=== PATIENT | female | born 1935 | race Caucasian/White ===

== ENCOUNTER 2024-12-20 10:39 | Emergency (ER) | payer OTHER, MEDICARE, SELFPAY ==
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
[2024-12-20 10:47] VITALS: BP 170/70; PULSE 80; RESP 16; TEMP 36.7; O2SAT 100
--- NOTE | 2024-12-20 10:54 | ECG_ITS ---
Test Date: 2024-12-20 11:00:02 Measurements Intervals Sidney Rate: 76 P: 66 AR: 151 QRS: 17 QRSD: 80 T: 49 QT: 384 QTc: 433 Interpretive Statements SINUS RHYTHM NORMAL ECG No previous ECG available for comparison Electronically Signed On 12-20-2024 14:04:02 CDT by Torsten Roberts M.D.
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
[2024-12-20 14:10] VITALS: BP 152/76; PULSE 76; RESP 16; O2SAT 100
--- OUTSIDE RECORDS SUMMARY | 2024-12-20 15:33 | XMS_ITS ---
Author Organization [facility] Address [address] [place], [place] [id number] Care Team Providers Care Checkout Supervisor Name Role Phone Rigoberto Parsons Primary Care Provider REASON FOR VISIT 3 mouths follow up Encounters Encounter Location Date Provider Diagnosis Internal Medicine [facility] [address] [place], [place] [id number] 11/25/2024 Rigoberto Parsons Plan Of Treatment Next Appt Details Provider Name:Rigoberto Denis s, 12/31/2024 10:15:00 AM, [address], [place], [place], [place], [id number], Progress Notes * Namrata MAURO GDOB:1935 (89 yo F)Acc No.[id number]:11/25/2024 Patient: Landon Namrata DICKERSON Provider: Eli Parsons DO :1935 A ge:88 Y S ex:Female Date:11/25/2024 [address] [id number] Subjective: * Chief Complaints: * 1 . 3 mouths follow up. * Medical History: Objective: * Vitals: Assessment: Plan: * Treatment: * Care Plan Details* * Electronic signature of Keyur Parsons DO, [id number] on 12/20/2024 at 04:32 PM EDT Sign off status: Pending * Provider: Eli Parsons, DO Date: 0 11/25/2024 Generated for Nohemi lyle/Gardenia/Asiya on: 0 12/20/2024 04:32 PM EDT
--- OUTSIDE RECORDS SUMMARY | 2024-12-20 15:33 | XMS_ITS | Encounter Summary ---
Author Organization [facility] Address [facility] [address] [facility] [place] [address] Care Team Providers Care Booker Name Role Phone Rigoberto Parsons Primary Care Provider [phone] Source Comments In the event this information is protected by the Federal Confidentiality of Alcohol and Drug AbusePatient Records regulations: The Federal rules restrict any use of the information to criminally investigate or prosecute any alcohol or drug abuse patient.[facility] Encounter Details Date Type Department Care Team (Late st Contact Info) Description 09/30/2023 [place] [address] Provider, [facility] Actionable Imaging Result Notification Patient Outreach Social History Tobacco Use Types Packs/Day Years Used Date Smoking Tobacco: Former Cigarettes Smokeless Tobacco: Never Alcohol Use Standard Drinks/Week Comments Yes 0 (1 standard drink = 0.6 oz pur e alcohol) rarely Overall Financial Resource Strain (CARDIA) Answe r Date Recorded How hard is it for you to pa y for the very basics like food, housing, medical care, and heating? Not hard at all 09/30/2023 PHQ-2 Answer Date Recorded PHQ2 Score 0 05/23/2018 Hunger Vital Sign Answer Date Recorded Within the past 12 months, y ou worried that your food would run out before you got the money to buy more. Never true 09/30/19 24 Within the past 12 months, t he food you bought just didn't last and you didn't have money to get more. Never true 09/30/2023 PRAPARE - Transportation Answer Date Re corded In the past 12 months, has l ack of transportation kept you from medical appointments or from getting medications? No 05/2024 In the past 12 months, has l ack of transportation kept you from meetings, work, or from getting things needed for daily living? No 09/30/2023 Housing Stability Vital Sign Answer George e Recorded In the last 12 months, was t here a time when you were not able to pay the mortgage or rent on time? No 09/30/2023 In the last 12 months, how many places have you lived? 1 09/30/2023 In the last 12 months, was t here a time when you did not have a steady place to sleep or slept in a usp (including now)? No 09/30/2023 Area Deprivation Index Answer Date Bari rded National Score (1-100), lower number is lower ri sk 44 09/30/2023 State Score (1-10), lower number is lower risk 2 09/30/2023 Data from: https://www.neighborhoodatlas.medicine.[facility].edu/. Last address used for calculation [address] 09/30/2023 Comments Unknown Sex and Gender Information Value Date Recorded Sex Assigned at Not on file Legal Sex Female 8:56 AM EST Gender Identity Not on file Sexual Orientation Not on file Occupation Industry Job Start Date Job End Date [employer] Not on file Not on file Not on file documented as of this encounter Functional Status * Are you deaf or do you have serious difficulty hearing? Answer Date of Assessment Author No 09/30/2023 2:50 PM Gael Butler ch, RN * Are you blind or do you have serious difficulty seeing, even when wearing glasses? Answer Date of Assessment Author No 09/30/2023 2:50 PM Gael Butler ch, RN * Do you have serious difficulty walking or climbing stairs? Answer Date of Assessment Author No 09/30/2023 2:50 PM Gael Butler ch, RN * Do you have difficulty dressing or bathing? Answer Date of Assessment Author No 09/30/2023 2:50 PM Gael Butler ch, RN * Because of a physical, mental, or emotional condition, do you have difficulty doing errands alone such as visiting a doctor's office or shopping? Answer Date of Assessment Author No 09/30/2023 2:50 PM Gael Butler ch, RN documented as of this encounter Mental Status * Because of a physical, mental, or emotional condition, do you have serious difficulty concentrating, remembering, or making decisions? Answer Entry Date Author No 09/30/2023 2:50 PM Gael Butler ch, RN documented in this encounter Plan of Treatment Not on file documented as of this encounter Visit Diagnoses Not on filedocumented in this encounter Additional Health Concerns Infection Onset Date Last Indicated Resolved Time COVID-19 Rule-Out 07/31/2024 07/31/2024 07/31/2024 12:56 PM EST documented as of this encounter Care Teams Booker Relationship Specialty Start Date End Date Rigoberto Parsons DO PCP - General 01/05/16 documented as of this encounter
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
--- OUTSIDE RECORDS SUMMARY | 2024-12-20 15:33 | XMS_ITS | Clinical Summary ---
Author Organization [facility] Address [address] [place] [address] Care Team Providers Care Preparation Center Coordinator Name Role Phone Rigoberto Parsons DO Primary Care Provider [phone] Social History Tobacco Use Types Packs/Day Years Used Date Smoking Tobacco: Never Assessed Comments Unknown Sex and Gender Information Value Date Recorded Sex Assigned at Not on file Legal Sex Female 1:16 PM EDT Gender Identity Not on file Sexual Orientation Not on file Plan of Treatment Not on file Care Teams Preparation Center Coordinator Relationship Specialty Start Date End Date Rigoberto Parsons DO PCP - General 06/04/19
--- OUTSIDE RECORDS SUMMARY | 2024-12-20 15:33 | XMS_ITS | Patient Health Record ---
Author Organization [facility] Address [address] [place] [address] Care Team Providers Care Aviation Technical Systems Specialist Name Role Phone Echo Dan Unavailable [phone] Allergies Allergen (clinical drug ingredient) Drug/Non Drug Allergy documented on EMR Reaction Allergy Type Onset Date Status caffeine Caffeine Unknown Drug Allergy Active codeine Codeine Unknown Drug Allergy Active Reason For Referral No Information Social History Tobacco Use: Social History Observation Description Date Details (start date - stop date) Never Smoker NA - NA Tobacco Use/Smoking Question Answer Notes Are you a nonsmoker Alcohol Screen (Audit-C) Question Answer Notes Did you have a drink contain ing alcohol in the past year? Yes How often did you have a dri nk containing alcohol in the past year? Monthly or less (1 point) How many drinks did you have on a typical day when you were drinking in the past year? 1 or 2 drinks (0 point) How often did you have 6 or more drinks on one occasion in the past year? Never (0 point) Points 1 Interpretation Negative Problems Problem Type SNOMED Code ICD Code Onset Dates Problem Status W/U Status Risk Notes Problem Female stress incontinence (73926867) Female stress incontinence (N39.3) Active confirmed Problem Flank pain (196579771) Flank pain (R10.9) Active confirmed Plan Of Treatment No Information Insurance Providers Payer Name Payer Address Payer Phone Subscriber Number Group Number Insured Name Patient Relationship to Insured Coverage Start Date Coverage End Date Medicare of [place] J15 1 [address] [place], JESI [id number] Namrata Bonner Self - patient is the insured AARP Medicare Supplement [facility] [address] [place] [address] [id number] Namrata Bonner Self - patient is the insured Medical (General) History Medical History History ICD Code breast cancer Surgical History Surgery Date(Month/Year) mastectomy and reconstruction cataract removal lump removed from thyroid
--- OUTSIDE RECORDS SUMMARY | 2024-12-20 15:33 | XMS_ITS | Clinical Summary ---
Author Organization [facility] Address [address] [place] [address] Care Team Providers Care Sleep Lab Technician Name Role Phone Rigoberto Parsons DO Primary Care Provider [phone] Encounters Date Type Department Care Team Description 09/27/2024 Nurse Triage [facility] [address] [place], [place] [id number] Serene Masterson RN from Last 3 Months Social History Tobacco Use Types Packs/Day Years Used Date Smoking Tobacco: Never Assessed Comments Unknown Sex and Gender Information Value Date Recorded Sex Assigned at Not on file Legal Sex Female 8:24 PM EDT Gender Identity Not on file Sexual Orientation Not on file Plan of Treatment Health Maintenance Due Date Last Done Comments Depression Screening 1947 Zoster Vaccines (1 of 2) 12/20/1985 RSV Immunization for Adults (1 - 1-dose 75+ series) 12/20/2010 Pneumococcal Vaccine: 50+ Years (2 of 2 - PPSV23) 04/18/2018 04/18/2017 COVID-19 Vaccine ( season) 2024 08/09/2021, 11/10/2020, 10/20/2020 DTaP/Tdap/Td Vaccines (3 - Td or Tdap) 06/11/2030 06/11/2020, 11/17/2017 Bone Density Scan Completed 06/12/2023, 06/12/2023 Influenza Vaccine Completed 06/24/2024, , 06/25/2022, Additional history exists HIB Vaccines Aged Out No longer eligi ble based on patient's age to complete this topic HPV Vaccines Aged Out No longer eligi ble based on patient's age to complete this topic Hepatitis A Vaccines Aged Out No long er eligible based on patient's age to complete this topic Hepatitis B Vaccines Aged Out No long er eligible based on patient's age to complete this topic IPV Vaccines Aged Out No longer eligi ble based on patient's age to complete this topic Meningococcal Vaccine Aged Out No lakes[place] kris eligible based on patient's age to complete this topic RSV Immunization under 20 Months Aged Out No longer eligible based on patient's age to complete this topic Rotavirus Vaccines Aged Out No longer eligible based on patient's age to complete this topic Care Teams Sleep Lab Technician Relationship Specialty Start Date End Date Rigoberto Parsons DO [address] [place] [address] PCP - General 06/04/19
--- OUTSIDE RECORDS SUMMARY | 2024-12-20 15:33 | XMS_ITS | Clinical Summary ---
Author Organization [facility] Address [address] [place] [address] Care Team Providers Care Search Marketing Coordinator Name Role Phone Unknown, Provider Primary Care Provider Unavaila ble Source Comments [facility],non-owned Affiliates and Associated Physician Practices is amultiple site organization consisting of ambulatory clinics and hospital sitesin [place], [place], [place] and [place]. This disclosure is being madepursuant to the Care Everywhere program and may not contain all information available regarding this patient. Last updated 18.[facility] [employer] Allergies Active Allergy Reactions Criticality Noted Date Comments Caffeine Unknown 01/05/2016 Shakiness Codeine Unknown 01/05/2016 Shakiness Epinephrine GI Discomfort 06/14/2020 Heart palpatations Rosuvastatin GI Discomfort,Myalgias 01/06/2018 Medications * Be aware that medications may not be up to date on this document. Alwaysverify current medications with the patient. Medication Sig Dispensed Refills Start Date End Date Status amLODIPine (Norvasc) 2.5 MG tablet Take 1 (one) tablet by mouth once daily 10/01/2023 Active cephalexin (Keflex) 500 MG capsuleIndications:D ental abscess Take 1 (one) capsule by mouth 2 times daily 20 capsule 02/28/2024 Active Active Problems No known active problems Social History Tobacco Use Types Packs/Day Years Used Date Smoking Tobacco: Never Passive Smoke Exposure: Never Smokeless Tobacco: Never Tobacco Cessation:Counseling Given: Not Answered Sex and Gender Information Value Date Recorded Sex Assigned at Not on file Gender Identity Not on file Sexual Orientation Not on file Last Filed Vital Signs Vital Sign Reading Time Taken Comments Blood Pressure 142/82 02/28/2024 11:41 AM CDT Pulse 78 02/28/2024 11:41 AM CDT Temperature 36.7 C (98.1 F) 02/28/2024 11:41 AM CDT Respiratory Rate 14 02/28/2024 11:41 AM CDT Oxygen Saturation 98% 02/28/2024 11:41 AM CDT Inhaled Oxygen Concentration - - Weight 56.2 kg (124 lb) 02/28/2024 11:41 AM CDT Height 162.6 cm (5' 4 ) 02/28/2024 11:41 AM CDT Body Mass Index 21.28 02/28/2024 11:41 AM CDT Plan of Treatment Health Maintenance Due Date Last Done Comments MEDICARE AWV 12 MONTHS 1935 DTAP/TDAP/TD VACCINES (1 - Tdap) 12/20/1954 PNEUMOCOCCAL VACCINE 50+ (1 of 1 - PCV) 12/20/1985 ZOSTER VACCINE (1 of 2) 12/20/1985 Respiratory Syncytial Virus (RSV) Vaccine Pt: or over 60 yrs (1 - 1-dose 75+ series) 12/20/2010 COVID-19 VACCINE ( - season) 2024 09/18/2022, 08/09/2021, 11/10/2020, Additional history exists INFLUENZA VACCINE (#1) 2024 , 06/25/2022, 06/19/2021, Additional history exists DEPRESSION SCREENING 09/22/2024 BONE DENSITY TESTING Completed 06/12/2023 HEPATITIS B VACCINE Aged Out No longe r eligible based on patient's age to complete this topic HIB VACCINE Aged Out No longer eligi ble based on patient's age to complete this topic HPV VACCINE Aged Out No longer eligi ble based on patient's age to complete this topic MENINGOCOCCAL (Group B) VACCINE SHARED DECISION-MAKING Aged Out No longer eligible based on patient's age to complete this topic MENINGOCOCCAL GROUPS A/C/Y/W VACCINE Aged Out No longer eligible based on patient's age to complete this topic Care Teams Search Marketing Coordinator Relationship Specialty Start Date End Date Unknown, Provider PCP - General 02/28/24
--- OUTSIDE RECORDS SUMMARY | 2024-12-20 15:33 | XMS_ITS ---
Author Organization [facility] Address [address] [place], [place] [address] Care Team Providers Care Dye House Vat Worker Name Role Phone Rigoberto Parsons Primary Care Provider REASON FOR VISIT awv / review outside labs Encounters Encounter Location Date Provider Diagnosis Internal Medicine [facility] [address] [place], [place] [phone] 11/04/2024 Rigoberto Parsons Plan Of Treatment Next Appt Details Provider Name:Rigoberto Denis s, 12/31/2024 10:15:00 AM, [address], [place], [place], [place], [phone], Progress Notes * Namrata MAURO GDOB:1935 (89 yo F)Acc No.[id number]:11/04/2024 Progress Notes Patient: Landon Namrata DICKERSON Provider: Eli Parsons DO :1935 A ge:88 Y S ex:Female Date:11/04/2024 Address:[address] [facility] Subjective: * Chief Complaints: * 1 . Awv / review outside labs. * Medical History: Objective: * Vitals: Assessment: Plan: * Treatment: * Care Plan Details* * Electronic signature of Keyur Parsons DO, [id number] on 12/20/2024 at 04:33 PM EDT Sign off status: Pending * Provider: Eli Parsons, DO Date: 0 11/04/2024 Generated for Nohemi lyle/Gradenia/Samitting on: 0 12/20/2024 04:33 PM EDT
--- OUTSIDE RECORDS SUMMARY | 2024-12-20 15:33 | XMS_ITS | Patient Health Record ---
Author Organization Corporate Office Address [address] [place] [address] [address] [place] [address] Care Team Providers Care Ball Mill Operator Name Role Phone Rigoberto Parsons Primary Care Provider Unavailabl e Allergies Allergen (clinical drug ingredient) Drug/Non Drug Allergy documented on EMR Reaction Allergy Type Onset Date Status caffeine Caffeine headaches Drug Allergy Active codeine Codeine Sulfate stomach upset Drug Allergy Active Reason For Referral No Information Social History Tobacco Use: Social History Observation Description Date Details (start date - stop date) Never Smoker NA - NA Smoking Question Answer Notes Are you a: Never Smoker Problems Problem Type SNOMED Code ICD Code Onset Dates Problem Status W/U Status Risk Notes Problem [id number] Dysphonia (R49.0) Active confirmed Problem 771201911 Throat clearing (R68.89) Active confirmed Problem [id number] 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 MEDICARE SUPPLEMENT [address] [place] [id number] Namrata Bonner Self - patient is the insured Medical (General) History Medical History History ICD Code Breast Cancer Surgical History Surgery Date(Month/Year) Mastectomy Breast reconstruction Hysterectomy
--- OUTSIDE RECORDS SUMMARY | 2024-12-20 15:33 | XMS_ITS ---
Author Organization [facility] Address [address] [place], [place] [address] Care Team Providers Care Acute Care Certified Nursing Assistant Name Role Phone Rigoberto Parsons Primary Care Provider [phone] CHEST WITHOUT Encounters Encounter Location Date Provider Diagnosis Internal Medicine [facility] [address], [place] [phone] 10/13/2024 Rigoberto Parsons Plan Of Treatment Next Appt Details Provider Name:Rigoberto Denis s, 12/31/2024 10:15:00 AM, [address], [place], [place], [phone], Progress Notes * Namrata MAURO GDOB:1935 (88 yo F)Acc No.[id number]:10/13/2024 Patient: Landon Namrata DICKERSON :1935 A ge:88 Y S ex:Female Address:[address], [place], [address] * true * Date: Generated for Printi ng/Faxing/eTransmitting on: 0 12/20/2024 04:32 PM EDT
== END 2024-12-20 14:10 | disposition home or self-care (01) ==
LOC: ANHED 14:08
PROVIDERS: Emergency Provider Emergency Medicine
DX: S09.90XA Unspecified injury of head, initial encounter (principal); V43.62XA Car passenger injured in collision with other type car in traffic accident, initial encounter; Z85.3 Personal history of malignant neoplasm of breast; Z90.10 Acquired absence of unspecified breast and nipple
CPT/HCPCS: 70450; 71046; 93005; 99284